=== PATIENT | male | born 2005 | race Caucasian/White ===

== ENCOUNTER 2024-08-02 08:29 | Outpatient (CLI) | payer OTHER ==
[2024-08-02 09:15] LABS: BASO % 0.5 % (0.1-1.2); EOS # 0.19 (0.04-0.54); EOS % 3.3 % (0.7-7.0); HEMATOCRIT 35.4 % (40.1-51.0); HEMOGLOBIN 10.7 g/dL (13.7-17.5); LYMPH % 49.9 % (19.3-53.1); MEAN CORPUSCULAR HEMOGLOBIN 22.7 pg (25.6-32.2); MONO # 0.48 (0.24-0.82); MONO % 8.3 % (4.7-12.5); NEUT % 37.8 % (34.0-71.1); PLATELET COUNT 290 K/uL (163-369); RED BLOOD COUNT 4.72 M/uL (4.63-6.08); RED CELL DISTRIBUTION WIDTH 16.5 % (11.6-14.4)
[2024-08-02 09:29] LABS: ERYTHROCYTE SEDIMENTATION RATE 44 mm/hr (0-15)
[2024-08-02 09:36] LABS: PH,URINE 5.5 (5.0-8.0); URINE APPEARANCE Clear; URINE BILIRRUBIN Negative (NEGATIVE); URINE BLOOD Negative; URINE COLOR Yellow; URINE GLUCOSE Negative (NEGATIVE); URINE KETONE Negative (NEGATIVE); URINE LEUKOCYTE Negative; URINE NITRATE Negative; URINE PROTEIN Negative (NEGATIVE); URINE UROBILINOGEN 0.2 E.U./dl
[2024-08-02 09:37] LABS: URINE BACTERIA 25.7 uL (0.0-1933); URINE EPITHELIAL CELLS 3.3 uL (0.0-38.8); URINE RBC 11.4 uL (0.0-20.8); URINE WBC 13.2 uL (0.0-23.2)
[2024-08-02 09:46] LABS: COVID-19 AG NEGATIVE (NEGATIVE)
[2024-08-02 09:47] LABS: URINE CAST 0.29 uL (0.0-1.40)
== END 2024-08-02 08:42 | disposition home or self-care (01) ==
LOC: LAB 08:29
DX: R10.9 Unspecified abdominal pain (principal); R11.2 Nausea with vomiting, unspecified; R51.9 Headache, unspecified

== ENCOUNTER 2024-08-02 09:27 | Outpatient (CLI) | payer OTHER | END 2024-08-02 09:33 | disposition home or self-care (01) | LOC: RAD 09:27 | DX: R10.9 Unspecified abdominal pain (principal); R11.2 Nausea with vomiting, unspecified; R51.9 Headache, unspecified; M79.602 Pain in left arm ==